=== PATIENT | female | born 1980 | race Caucasian/White ===

== ENCOUNTER 2019-08-14 14:58 | Emergency (ER) | payer SELFPAY ==
[~2019-08-14] VITALS: Ht 157.5 cm; Wt 63.5 kg
[2019-08-14] MEDS ORDERED: KETOROLAC TROMETHAMINE 30 MG INJ IVP ONE (15:45)
[2019-08-14] MEDS ORDERED: VALPROATE SODIUM 500 MG/5 ML VIAL IV ONE (15:45)
[2019-08-14] MEDS ORDERED: IV NORMAL SALINE 1000 ML BAG IV ONE (15:45)
[2019-08-14] MEDS ORDERED: KETOROLAC TROMETHAMINE 30 MG INJ ONE ×2 (15:53→15:59)
--- NOTE | 2019-08-14 15:57 | NUR ---
Patient is Aox4, refusing all IV fluids & medicines, MD notified.
[2019-08-14] MEDS ORDERED: KETOROLAC TROMETHAMINE 60 MG INJ IM ONE (16:00)
[2019-08-14] MEDS ORDERED: VALPROATE SODIUM IV 500 MG in IV DEXTROSE 5% 100 ML IV ONE (16:00)
[2019-08-14 16:45] LABS: *URINE HCG, QUAL NEGATIVE (NEGATIVE)
[2019-08-14] MEDS ORDERED: TRAMADOL HCL 50 MG TABLET PO ONE (17:00)
[2019-08-14] MEDS ORDERED: TRAMADOL HCL 50 MG TABLET ONE (17:00)
[2019-08-14] MEDS ORDERED: ACETAMINOPHEN ES 500 MG TABLET ONE (17:00)
[2019-08-14] MEDS ORDERED: ACETAMINOPHEN ES 500 MG TABLET PO ONE (17:00)
[2019-08-14 17:05] LABS: *AMPHETAMINE, URINE NEGATIVE (NEGATIVE); *BARBITURATE, URINE NEGATIVE (NEGATIVE); *CANNABINOID, URINE NEGATIVE (NEGATIVE); *COCCAINE, URINE NEGATIVE (NEGATIVE); *OPIATE, URINE NEGATIVE (NEGATIVE); *PHENCYCLIDINE SCREEN,URINE NEGATIVE (NEGATIVE)
--- NOTE | 2019-08-14 17:51 | NUR ---
Patient discharged to home in stable conditon & brisk steady gait. Written and verbal after care instructions given to patient. Patient verbalizes understanding & compliance of instructions.
== END 2019-08-14 17:51 | disposition home or self-care (01) ==
LOC: ER 14:59
DX: G43.909 Migraine, unspecified, not intractable, without status migrainosus (principal); F17.200 Nicotine dependence, unspecified, uncomplicated; Z88.2 Allergy status to sulfonamides
CPT/HCPCS: 70450; 80307; 84703; 96372; 99284; J1885 ×2; A4663; A9150; J3490; J7030; J7060

== ENCOUNTER 2020-11-03 12:16 | Emergency (ER) | payer SELFPAY ==
[~2020-11-03] VITALS: Ht 160 cm; Wt 68.0 kg
--- NOTE | 2020-11-03 12:35 | NUR ---
PT IS IN ROOM #2B. DR AYERS EVALUATED THE PT.
[2020-11-03 12:50] LABS: *URINE HCG, QUAL NEGATIVE (NEGATIVE)
[2020-11-03 12:54] LABS: *BILIRUBIN,URIN NEGATIVE (NEGATIVE); *BLOOD, URINE NEGATIVE (NEGATIVE); *CLARITY,URINE SLIGHTLY CLOUDY (CLEAR); *COLOR,URINE YELLOW (YELLOW); *KETONES,URINE NEGATIVE (NEGATIVE); *UROBILINOGEN,URINE 0.2 E.U./dl (NORMAL); LEUKOCYTE ESTERASE ,URINE TRACE (NEGATIVE); NITRITE, URINE NEGATIVE (NEGATIVE); PH,URINE 7.5 (5.0-8.0); UGLUCOSE NEGATIVE (NEGATIVE)
[2020-11-03 13:12] LABS: *AMPHETAMINE, URINE NEGATIVE (NEGATIVE); *CANNABINOID, URINE POSITIVE (NEGATIVE); *COCCAINE, URINE NEGATIVE (NEGATIVE); *OPIATE, URINE POSITIVE (NEGATIVE); *PHENCYCLIDINE SCREEN,URINE NEGATIVE (NEGATIVE)
[2020-11-03] MEDS ORDERED: KETOROLAC TROMETHAMINE 30 MG INJ ONE (13:26)
[2020-11-03] MEDS ORDERED: KETOROLAC TROMETHAMINE 30 MG INJ IM ONE (13:30)
[2020-11-03] MEDS ORDERED: HYDROCODONE/APAP 5-325MG TABLET PO ONE (14:15)
[2020-11-03] MEDS ORDERED: HYDROCODONE/APAP 5-325MG TABLET ONE (14:18)
[2020-11-03] MEDS ORDERED: IBUP-1955 PO (14:23)
[2020-11-03] MEDS ORDERED: HYDR-3980 PO (14:23)
--- NOTE | 2020-11-03 14:37 | NUR ---
PT WAS D/C'd TO HOME. D/C INSTRUCTIONS GIVEN TO THE PT BY DR AYERS.
[2020-11-03 14:39] VITALS: BP 131/77
[2020-11-03 18:42] LABS: BACTERIA,URINE FEW /HPF (NONE SEEN); SQUAMOUS EPITHELIAL CELL,UR MANY /HPF (NONE SEEN)
[2020-11-03 18:43] LABS: MUCUS,URINE FEW /LPF (0-FEW)
== END 2020-11-03 14:40 | disposition home or self-care (01) ==
LOC: ER 12:16
DX: N20.0 Calculus of kidney (principal); N39.0 Urinary tract infection, site not specified; R10.9 Unspecified abdominal pain; N28.1 Cyst of kidney, acquired; Z88.2 Allergy status to sulfonamides; Z86.69 Personal history of other diseases of the nervous system and sense organs
CPT/HCPCS: 76770; 80307; 81001; 84703; 87086; 96372; 99284; J1885

== ENCOUNTER 2022-04-12 17:19 | Emergency (ER) | payer OTHER ==
[~2022-04-12] VITALS: Ht 160 cm; Wt 64.9 kg
[~2022-04-12 17:19] MED LIST: IBUP-1955 PO
[2022-04-12] MEDS ORDERED: GABA-532 PO (18:17)
[2022-04-12 18:38] LABS: *BILIRUBIN,URIN NEGATIVE (NEGATIVE); *BLOOD, URINE NEGATIVE (NEGATIVE); *CLARITY,URINE CLEAR (CLEAR); *COLOR,URINE YELLOW (YELLOW); *KETONES,URINE NEGATIVE (NEGATIVE); *UROBILINOGEN,URINE 0.2 E.U./dl (NORMAL); LEUKOCYTE ESTERASE ,URINE NEGATIVE (NEGATIVE); NITRITE, URINE NEGATIVE (NEGATIVE); UGLUCOSE NEGATIVE (NEGATIVE)
[2022-04-12 18:40] LABS: *URINE HCG, QUAL NEG (NEGATIVE)
[2022-04-12 18:50] LABS: HEMATOCRIT 40.9 % (31.2-41.9); MEAN CORPUSCULAR HEMOGLOBIN 31.2 uug (24.7-32.8); MEAN CORPUSCULAR VOLUME 94.1 fL (75.5-95.3); PLATELET COUNT (AUTO) 380 K/uL (179-408)
[2022-04-12 19:03] LABS: BILIRUBIN,DIRECT 0.1 mg/dL (0.0-0.2); BILIRUBIN,TOTAL 0.4 mg/dL (0.2-1.0); TOTAL PROTEIN, SERUM 7.7 g/dL (6.4-8.2)
[2022-04-12] MEDS ORDERED: ONDANSETRON ODT 4 MG TAB.RAPDIS SL ONE (19:15)
[2022-04-12] MEDS ORDERED: HYDROCODONE/APAP 5-325MG TABLET PO ONE (19:15)
[2022-04-12] MEDS ORDERED: HYDROCODONE/APAP 5-325MG TABLET ONE (19:20)
[2022-04-12] MEDS ORDERED: ONDANSETRON ODT 4 MG TAB.RAPDIS ONE (19:20)
--- NOTE | 2022-04-12 19:42 | NUR ---
Ultrasound at bedside
[2022-04-12] MEDS ORDERED: HYDROCODONE/APAP 10-325 MG TABLET ONE (20:09)
[2022-04-12] MEDS ORDERED: IBUPROFEN 400 MG TABLET ONE (20:09)
[2022-04-12] MEDS ORDERED: IBUPROFEN 400 MG TABLET PO ONE (20:15)
[2022-04-12] MEDS ORDERED: HYDROCODONE/APAP 10-325 MG TABLET PO ONE (20:15)
[2022-04-12] MEDS ORDERED: MORPHINE SULFATE 4 MG/1 ML DISP.SYRIN ONE (20:26)
[2022-04-12] MEDS ORDERED: MORPHINE SULFATE 4 MG/1 ML DISP.SYRIN IM ONE (20:30)
[2022-04-12] MEDS ORDERED: ONDA4TAB11 PO (20:42)
[2022-04-12] MEDS ORDERED: TAMS-3 PO (20:42)
[2022-04-12] MEDS ORDERED: HYDR-3980 PO (20:42)
--- NOTE | 2022-04-12 20:54 | NUR ---
Patient discharged to home in stable condition. Written and verbal after care instructions given. Patient verbalizes understanding of instructions. Stressed follow up or return to ER for worsening s/s. pt ambulated wtih steady gait. denies pain. AOx4
[2022-04-12 21:11] VITALS: BP 129/78
== END 2022-04-12 21:11 | disposition home or self-care (01) ==
LOC: ER 17:21
DX: N20.0 Calculus of kidney (principal); Z88.2 Allergy status to sulfonamides; F17.200 Nicotine dependence, unspecified, uncomplicated
CPT/HCPCS: 99283; 76700; 80076; 80048; 81003; 84703; 83690; 85025; 36415; 96372; J2270; A4663; Q0162